=== PATIENT | male | born 1985 | race Caucasian/White ===

== ENCOUNTER 2024-02-23 22:55 | Emergency (ER) | payer BC ==
[~2024-02-23] VITALS: Ht 180.3 cm; Wt 132.0 kg
[2024-02-23] MEDS ORDERED: SODIUM CHLORIDE 0.9% 1,000 ML IV ONE (23:10)
[2024-02-23 23:24] LABS: BASO # 0.1 10*3/uL (0.0-0.1); BASO % 0.8 % (0.0-1.0); EOS # 0.1 10*3/uL (0.0-0.4); EOS % 1.5 % (1.0-4.0); LYMPH # 2.2 10*3/uL (1.3-4.4); LYMPH % 30.8 % (27.0-41.0); MEAN CELL VOLUME 95.1 fl (80.0-94.0); MEAN CORPUSCULAR HGB 33.4 pg (27.0-31.0); MEAN CORPUSCULAR HGB CONC 35.1 g/dl (33.0-37.0); MEAN PLATELET VOLUME 9.5 fl (9.6-12.3); MONO # 0.7 10*3/uL (0.1-1.0); NEUT # 4.1 10*3/uL (2.3-7.9); NEUT % 57.5 % (47.0-73.0); PLATELET COUNT AUTOMATED 251 10*3/uL (130-400); RED CELL DISTRI WIDTH 11.9 % (0-14.5); WHITE BLOOD COUNT 7.2 10*3/uL (4.8-10.8)
[2024-02-23] MEDS ORDERED: MONTELUKAST SOD10 MG PO (23:38)
[2024-02-23] MEDS ORDERED: METOPROLOL SUC100 M1 PO (23:38)
[2024-02-23] MEDS ORDERED: VALACYCLOVIR500 M1 PO (23:38)
[2024-02-23] MEDS ORDERED: OMEPRAZOLE40 MG PO (23:38)
[2024-02-23] MEDS ORDERED: CLONAZEPAM1 MG PO (23:38)
[2024-02-23] MEDS ORDERED: ATORVASTATIN CA20 M1 PO (23:38)
[2024-02-23] MEDS ORDERED: METFORMIN HYDR500 MG PO (23:38)
[2024-02-23] MEDS ORDERED: LISINOPRIL20 MG PO (23:38)
[2024-02-23 23:43] LABS: BUN 15 mg/dl (9-23); CHLORIDE 103 mmol/L (98-107); LIPASE 33 U/L (12-53); POTASSIUM 4.1 mmol/L (3.4-5.1)
[2024-02-24] MEDS ORDERED: MG-AL HYDROXIDE/SIMETICONE 30 ML UDC PO STA (01:01)
[2024-02-24] MEDS ORDERED: Lidocaine Hydrochloride 15 ML UDC PO STA (01:01)
[2024-02-24] MEDS ORDERED: Dicyclomine Hydrochloride 20 MG/10 ML OSYR PO STA (01:01)
[2024-02-24] MEDS ORDERED: PROTONIX40 MG PO (01:05)
[2024-02-24] MEDS ORDERED: CYCLOBENZAPRINE10 MG PO (01:05)
[2024-02-24] MEDS ORDERED: Acetaminophen/Hydrocodone Bi 3 TAB PACK PO PRN (01:05)
[2024-02-24] MEDS ORDERED: Cyclobenzaprine Hydrochlorid 10 MG TAB PO ONE (01:05)
[2024-02-24] MEDS ORDERED: VISTARIL25 MG PO (01:06)
== END 2024-02-24 01:16 | disposition home or self-care (01) ==
LOC: ED 22:55
PROVIDERS: Internal Medicine
DX: R10.84 Generalized abdominal pain (principal); R11.2 Nausea with vomiting, unspecified